=== PATIENT | male | born 1950 | race Caucasian/White ===

== ENCOUNTER → 2020-06-26 11:37 | Outpatient (CLI) | payer MEDICARE, OTHER, SELFPAY ==
--- NOTE | ~2020-06-26 | US_ITS ---
EXAMINATION: US soft tissue groin LT INDICATION: Left groin pain, localized swelling, mass, and lump TECHNIQUE: Targeted high-resolution ultrasound is performed in the left groin in the area of clinical concern. COMPARISON: CT, 01/16/2019 FINDINGS: There appears to be a left inguinal hernia containing fat corresponding to the area of clin ical concern. On some images there is questionable bowel within the hernia. Normal-appearing right gr oin lymph nodes are noted. IMPRESSION: 1. Sonographic findings suggestive of left inguinal hernia correlating with the area of swelling and pain. Reviewed, dictated and finalized at location F.
== END ==
PROVIDERS: PCP Registered Nurse; Visit Provider Registered Nurse
DX: R22.2 Localized swelling, mass and lump, trunk (principal); R10.32 Left lower quadrant pain
CPT/HCPCS: 76882